=== PATIENT | male | born 1995 | race Caucasian/White ===

== ENCOUNTER 2017-04-13 18:01 | Emergency (ER) | payer OTHER ==
[2017-04-13] MEDS ORDERED: DUONEB *Not for PRN Use IH ONE (18:02)
--- NOTE | 2017-04-13 18:05 | Emergency Department Report ---
Chief Complaint: Adult Asthma Stated Complaint: CHEST PAIN/ADELAIDE/ASTHMA Time Seen by Provider: 04/13/17 18:02 - HPI History of Present Illness: sob since last night, no improvement with home inhaler + coughing - ROS Review of Systems: + cough, + wheeze - Exam Physical Exam: diaphoretic tachypnea + insp and exp wheezing MSE screening note: Focused history and physical exam performed. Due to findings the following was ordered: labs, meds, ekg ED Disposition for MSE Condition: Stable
[2017-04-13] MEDS ORDERED: PROVENTIL IH ONE ×2 (18:34→19:01)
[2017-04-13] MEDS ORDERED: ATROVENT IH ONE ×2 (18:34→19:02)
[2017-04-13 18:40] LABS: Basophils % (Auto) 0.3 % (0.0-1.8); Eosinophils % (Auto) 0.8 % (0.0-4.3); Hematocrit 44.8 % (35.5-45.6); Mean Corpuscular HGB Conc 33 % (32-34); Mean Corpuscular Hemoglobin 28 pg (28-32); Mean Corpuscular Volume 83 fl (84-94); Platelet Count 260 K/mm3 (140-440); Red Blood Count 5.41 M/mm3 (3.65-5.03); Red Cell Distribution Width 13.9 % (13.2-15.2); White Blood Count 15.3 K/mm3 (4.5-11.0)
[2017-04-13 18:50] LABS: Anion Gap 18 mmol/L; BUN/Creatinine Ratio 6.25; Blood Urea Nitrogen 5 mg/dL (9-20); Calcium 8.7 mg/dL (8.4-10.2); Carbon Dioxide 24 mmol/L (22-30); Chloride 103.3 mmol/L (98-107); Glucose 136 mg/dL (75-100); Potassium 3.6 mmol/L (3.6-5.0); Sodium 142 mmol/L (137-145)
[2017-04-13] MEDS ORDERED: ZOFRAN ONE (19:00)
[2017-04-13] MEDS ORDERED: ZOFRAN IV ONE (19:11)
--- NOTE | 2017-04-13 19:28 | Emergency Department Report ---
ED Chest Pain HPI - General Chief Complaint: Dyspnea/Respdistress Stated Complaint: CHEST PAIN/ADELAIDE/ASTHMA Time Seen by Provider: 04/13/17 18:02 Source: patient Mode of arrival: Ambulatory Limitations: No Limitations - History of Present Illness Initial Comments: This is a 21-year-old -[place] male presents to the emergency department from home with complaint of shortness of breath, wheezing and some midsternal chest pain that's been going on for the past 2 days. The patient has a history of asthma and tried to use his albuterol inhaler without any relief. He denies any fever. He did not have any nausea or vomiting until he got to the emergency department and got some Solu-Medrol and Toradol. He denies any history of WI, CVA, PE/DVT. No recent long car or plane rides or any international travel. No sick contacts at home. He is a tobacco smoker. He denies any illicit drug use. He does not have a primary care physician. Severity scale (0 -10): 6 - Related Data Previous Rx's Medication Instructions Recorded Last Taken Type ALBUTEROL Inhaler [ProAir HFA 1 puff PO PRN PRN #1 inha 04/13/17 Unknown Rx Inhaler] Azithromycin [Zithromax Z-KEON] 250 mg PO DAILY #6 tab 04/13/17 Unknown Rx predniSONE [Deltasone] 20 mg PO QDAY #4 tab 04/13/17 Unknown Rx Allergies Allergy/AdvReac Type Severity Reaction Status Date / Time Penicillins Allergy Rash Verified 04/13/17 18:11 sulfamethoxazole Allergy Unknown Verified 04/13/17 18:11 [From Bactrim] trimethoprim [From Bactrim] Allergy Unknown Verified 04/13/17 18:11 Heart Score - HEART Score History: Slightly suspicious EKG: Normal Age: < 45 Risk factors: No known risk factors Troponin: < normal limit HEART Score: 0 - Critical Actions Critical Actions: 0-3 pts:0.9-1.7%risk of adverse cardiac event.Candidate for discharge ED Review of Systems ROS: Stated complaint: CHEST PAIN/ADELAIDE/ASTHMA Other details as noted in HPI Comment: All other systems reviewed and negative Constitutional: denies: chills, fever Eyes: denies: eye pain, eye discharge, vision change ENT: denies: ear pain, throat pain Respiratory: cough, shortness of breath, wheezing Cardiovascular: chest pain. denies: palpitations Gastrointestinal: denies: abdominal pain, diarrhea Genitourinary: denies: urgency, dysuria Musculoskeletal: back pain. denies: arthralgia Skin: denies: rash, lesions Neurological: denies: headache, weakness, paresthesias ED Past Medical Hx - Past Medical History Previous Medical History?: Yes Hx Asthma: Yes - Surgical History Past Surgical History?: Yes Additional Surgical History: T&A @ a young age - Social History Smoking Status: Current Every Day Smoker Substance Use Type: Alcohol, Non Opiate Pain - Medications Home Medications: Home Medications Medication Instructions Recorded Confirmed Last Taken Type ALBUTEROL Inhaler [ProAir HFA 1 puff PO PRN PRN #1 inha 04/13/17 Unknown Rx Inhaler] Azithromycin [Zithromax Z-KEON] 250 mg PO DAILY #6 tab 04/13/17 Unknown Rx predniSONE [Deltasone] 20 mg PO QDAY #4 tab 04/13/17 Unknown Rx ED Physical Exam - General Limitations: No Limitations - Other Other exam information: GENERAL: The patient is well-developed well-nourished. HEENT: Normocephalic. Atraumatic. Extraocular motions are intact. Patient has moist mucous membranes. Pupils equal reactive to light bilaterally. NECK: Supple. Trachea is midline. CHEST/LUNGS: Mild wheezing to chest. There is tachypnea but no excessive muscle use. There is no respiratory distress noted. HEART/CARDIOVASCULAR: Regular. There is mild tachycardia. There is no gallop rub or murmur. ABDOMEN: Abdomen is soft, nontender. Patient has normal bowel sounds. There is no abdominal distention. SKIN: There is some diaphoresis of the forehead but otherwise the skin is warm and dry. NEURO: The patient is awake, alert, and oriented. The patient is cooperative. The patient has no focal neurologic deficits. The patient has normal speech. MUSCULOSKELETAL: There is no tenderness or deformity. There is no limitation range of motion. There is no evidence of acute injury. ED Course Vital Signs 04/13/17 04/13/17 04/13/17 18:11 18:50 20:59 Temperature 99.1 F 100.8 F H Pulse Rate 103 H 94 H 125 H Respiratory 22 22 22 Rate Blood Pressure 152/84 Blood Pressure 139/89 129/68 [Right] O2 Sat by Pulse 98 98 98 Oximetry 04/13/17 21:30 Temperature 99.5 F Pulse Rate 111 H Respiratory 18 Rate Blood Pressure Blood Pressure 120/56 [Right] O2 Sat by Pulse 97 Oximetry EDI score - Edi Score Age > 65: (0) No Aspirin use within the Past 7 Days: (0) No 3 or more CAD Risk Factors: (0) No 2 or more Angina events in past 24 hrs: (0) No Known CAD with more than 50% Stenosis: (0) No Elevated Cardiac Markers: (0) No ST Deviation Greater than 0.5mm: (0) No EDI Score: 0 ED Medical Decision Making - Lab Data Result diagrams: 04/13/17 18:21 04/13/17 18:21 - EKG Data -: EKG Interpreted by Me EKG shows normal: sinus rhythm, axis, intervals, QRS complexes, ST-T waves Rate: normal - EKG Data When compared to previous EKG there are: previous EKG unavailable Interpretation: normal EKG - Radiology Data Radiology results: image reviewed interpreted by me: Chest x-ray does not show any pleural effusion, obvious signs of pneumonia or any pneumothorax. No acute process noted. - Medical Decision Making 21-year-old male presents the emergency department with some bronchospasm and asthma-like symptoms as well as some chest pain. The patient got diaphoretic and had some vomiting after he got some Solu-Medrol and Toradol but otherwise the patient presented diaphoretic and has not had any vomiting or diaphoresis since. He has some mild bronchospasm. He is given a very long breathing treatment upon arrival. EKG does not show any signs of ST elevation WI, ischemia or dysrhythmia. Chest x-ray does not show any pneumonia, pleural effusions or any acute process. He was reevaluated multiple times for multiple hours and says he is feeling much better. He has negative troponins 2 and a negative d-dimer. The patient appears safe for discharge home at this time. He will return to the ER if any worsening of symptoms or any acute distress. We discussed smoking cessation. He was given some azithromycin secondary to a low-grade fever and mild leukocytosis. - Differential Diagnosis pneumonia, asthma, bronchitis, WI, PE Critical Care Time: No Critical care attestation.: If time is entered above; I have spent that time in minutes in the direct care of this critically ill patient, excluding procedure time. ED Disposition Clinical Impression: Asthma exacerbation Chest pain Qualifiers: Chest pain type: unspecified Qualified Code(s): R07.9 - Chest pain, unspecified Disposition: - TO HOME OR SELFCARE Is pt being admited?: No Condition: Stable Instructions: Chest Pain (ED), Asthma (ED) Additional Instructions: Please follow up with a primary care physician next few days. Return to the emergency Department with any worsening of your symptoms or any acute distress. Please try and quit smoking. He can use Tylenol every 4 hours, easily based dosing, as needed for fever. Prescriptions: ALBUTEROL Inhaler [ProAir HFA Inhaler] 1 puff PO PRN PRN #1 inha PRN Reason: Shortness Of Breath Azithromycin [Zithromax Z-KEON] 250 mg PO DAILY #6 tab predniSONE [Deltasone] 20 mg PO QDAY #4 tab Referrals: PRIMARY CARE, [Primary Care Provider] - 3-5 Days [facility] [Outside] - 3-5 Days [facility] [Outside] - 3-5 Days [facility] [Outside] - 3-5 Days Time of Disposition: 22:35
[2017-04-13] MEDS ORDERED: TYLENOL PO ONE (21:15)
[2017-04-13 21:32] VITALS: BP 120/56
--- NOTE | 2017-04-14 07:28 | XRay Report ---
AP CHEST: HISTORY: Cough, wheezing, shortness of breath AP view of the chest demonstrates a normal mediastinal and cardiac contour with clear lungs and normal bony and soft tissue structures. IMPRESSION: No acute cardiopulmonary process.
== END 2017-04-13 23:18 | disposition home or self-care (01) ==
LOC: ED 18:01
DX: J45.901 Unspecified asthma with (acute) exacerbation (principal); R07.9 Chest pain, unspecified; F17.200 Nicotine dependence, unspecified, uncomplicated; Z88.0 Allergy status to penicillin; Z88.2 Allergy status to sulfonamides
CPT/HCPCS: 36415; 71010; 80048; 84484; 85025; 85379; 93005; 93010; 94640; 96374; 96375; 99284; J2405; J2930

== ENCOUNTER 2021-07-31 13:17 | Emergency (ER) | payer SELFPAY ==
--- NOTE | 2021-07-31 15:55 | Emergency Department Report ---
- General Chief complaint: Skin/Abscess/Foreign Body Stated complaint: BOIL Time Seen by Provider: 07/31/21 15:33 Source: patient Mode of arrival: Ambulatory Limitations: No Limitations - History of Present Illness Initial comments: 25-year-old obese -[place] male presents to the emergency room complaining of a boil to his left gluteal cleft x4 days. Patient states he tr ied to pop it with a safety pin and then it seemed to gotten worse. Patient has taken nothing for his pain. States he has a past medical history of asthma and is allergic to penicillin which causes a rash. Patient denies any fever chills no nausea no vomiting no abdominal pain no pain with urination no testicular swelling or tenderness. MD complaint: abscess/boil Onset/Timin -: days(s) Location: buttocks - Related Data Previous Rx's Medication Instructions Recorded Last Taken Type Albuterol Mdi (or & Nicu Only) 1 puff PO PRN PRN #1 inha 04/13/17 Unknown Rx [ProAir HFA Inhaler] Azithromycin [Zithromax Z-KEON] 250 mg PO DAILY #6 tab 04/13/17 Unknown Rx predniSONE [Deltasone] 20 mg PO QDAY #4 tab 04/13/17 Unknown Rx DOXYCYCLINE Hyclate [Vibramycin 100 mg PO Q12HR 7 Days #14 capsule 07/31/21 Unknown Rx CAP] Ibuprofen [Motrin 800 MG tab] 800 mg PO Q8HR PRN #30 tablet 07/31/21 Unknown Rx Allergies Allergy/AdvReac Type Severity Reaction Status Date / Time Penicillins Allergy Rash Verified 04/13/17 18:11 sulfamethoxazole Allergy Unknown Verified 04/13/17 18:11 [From Bactrim] trimethoprim [From Bactrim] Allergy Unknown Verified 04/13/17 18:11 Abscess Boil HPI - HPI Chief Complaint: Skin/Abscess/Foreign Body Stated Complaint: BOIL Time Seen by Provider: 07/31/21 15:33 Home Medications: Previous Rx's Medication Instructions Recorded Last Taken Type Albuterol Mdi (or & Nicu Only) 1 puff PO PRN PRN #1 inha 04/13/17 Unknown Rx [ProAir HFA Inhaler] Azithromycin [Zithromax Z-KEON] 250 mg PO DAILY #6 tab 04/13/17 Unknown Rx predniSONE [Deltasone] 20 mg PO QDAY #4 tab 04/13/17 Unknown Rx DOXYCYCLINE Hyclate [Vibramycin 100 mg PO Q12HR 7 Days #14 capsule 07/31/21 Unknown Rx CAP] Ibuprofen [Motrin 800 MG tab] 800 mg PO Q8HR PRN #30 tablet 07/31/21 Unknown Rx Allergies/Adverse Reactions: Allergies Allergy/AdvReac Type Severity Reaction Status Date / Time Penicillins Allergy Rash Verified 04/13/17 18:11 sulfamethoxazole Allergy Unknown Verified 04/13/17 18:11 [From Bactrim] trimethoprim [From Bactrim] Allergy Unknown Verified 04/13/17 18:11 ED Review of Systems ROS: Stated complaint: BOIL Other details as noted in HPI ED Past Medical Hx - Past Medical History Hx Asthma: Yes - Surgical History Additional Surgical History: T&A @ a young age - Social History Smoking Status: Current Every Day Smoker Substance Use Type: Alcohol, Non Opiate Pain - Medications Home Medications: Home Medications Medication Instructions Recorded Confirmed Last Taken Type Albuterol Mdi (or & Nicu Only) 1 puff PO PRN PRN #1 inha 04/13/17 Unknown Rx [ProAir HFA Inhaler] Azithromycin [Zithromax Z-KEON] 250 mg PO DAILY #6 tab 04/13/17 Unknown Rx predniSONE [Deltasone] 20 mg PO QDAY #4 tab 04/13/17 Unknown Rx DOXYCYCLINE Hyclate [Vibramycin 100 mg PO Q12HR 7 Days #14 capsule 07/31/21 Unknown Rx CAP] Ibuprofen [Motrin 800 MG tab] 800 mg PO Q8HR PRN #30 tablet 07/31/21 Unknown Rx ED Physical Exam - General Limitations: No Limitations ED Course Vital Signs 07/31/21 13:23 Temperature 98.3 F Pulse Rate 92 H Respiratory 15 Rate Blood Pressure 123/68 O2 Sat by Pulse 98 Oximetry ED Medical Decision Making - Medical Decision Making 25-year-old obese -[place] male presents to the emergency room complaining of a boil to his left gluteal cleft x4 days. Patient states he tried to pop it with a safety pin and then it seemed to gotten worse. Patient has taken nothing for his pain. States he has a past medical history of asthma and is allergic to penicillin which causes a rash. Patient denies any fever chills no nausea no vomiting no abdominal pain no pain with urination no testicular swelling or tenderness. Patient will be placed on doxycycline. And ibuprofen. Start the patient to use a warm compress to the bowl. Return in 72 hours for reevaluation. Critical care attestation.: If time is entered above; I have spent that time in minutes in the direct care of this critically ill patient, excluding procedure time. ED Disposition Clinical Impression: Boil of buttock Disposition: 01 HOME / SELF CARE / HOMELESS Is pt being admited?: No Does the pt Need Aspirin: No Condition: Stable Instructions: Skin Abscess, [id number] Additional Instructions: Complete antibiotics as prescribed pain medication as needed. Warm compresses to the bowl area. Follow-up in 72 hours to the emergency room for reevaluation. Prescriptions: Ibuprofen [Motrin 800 MG tab] 800 mg PO Q8HR PRN #30 tablet PRN Reason: Pain , Severe (7-10) DOXYCYCLINE Hyclate [Vibramycin CAP] 100 mg PO Q12HR 7 Days #14 capsule Referrals: PRIMARY CARE, [Primary Care Provider] - 3-5 Days Forms: Work/School Release Form(ED) Time of Disposition: 15:58
[2021-07-31 16:44] VITALS: BP 135/72
== END 2021-07-31 16:45 | disposition home or self-care (01) ==
LOC: ED 13:17
DX: L02.92 Furuncle, unspecified (principal); J45.909 Unspecified asthma, uncomplicated; F17.200 Nicotine dependence, unspecified, uncomplicated
CPT/HCPCS: 99282